=== PATIENT | male | born 1975 | race Caucasian/White ===

== ENCOUNTER 2017-08-12 10:16 | Emergency (ER) | payer OTHER ==
--- NOTE | 2017-08-12 10:23 | EDM.PDOC ---
ED HPI GENERAL MEDICAL PROBLEM - General Chief Complaint: Eye Problems Stated Complaint: STICK TO LEFT EYE Time Seen by Provider: 08/12/17 10:23 Source of Information: Reports: Patient, RN, RN Notes Reviewed History Limitations: Reports: No Limitations - History of Present Illness INITIAL COMMENTS - FREE TEXT/NARRATIVE: Pt c/o getting hit by a chip of fire wood in the left eye last night. Denies any other injury. Pt c/o left eye irritation and mild pain. Denies blurred vision. Pt states his tetanus vaccine is up to date. Onset Date: 08/11/17 Left Eye Pain Score (Numeric/FACES): 8 - Related Data Allergies Allergy/AdvReac Type Severity Reaction Status Date / Time No Known Allergies Allergy Verified 08/12/17 10:28 Home Meds: Home Meds Lisinopril [Zestril] 40 mg PO DAILY 08/12/17 [History] Spironolactone [Aldactone] 25 mg PO DAILY 08/12/17 [History] amLODIPine Besylate [Amlodipine Besylate] 5 mg PO DAILY 08/12/17 [History] Past Medical History Cardiovascular History: Reports: Hypertension Social & Family History - Family History Family Medical History: Noncontributory - Living Situation & Occupation Living situation: Reports: with Family Occupation: Employed ED ROS GENERAL - Review of Systems Review Of Systems: ROS reveals no pertinent complaints other than HPI. ED EXAM GENERAL W FULL EYE - Physical Exam Exam: See Below Exam Limited By: No Limitations General Appearance: Alert, WD/WN, No Apparent Distress Eye Exam: Right Eye: Normal Inspection, Left Eye: Conjunctival Injection, Corneal Abrasion, Bilateral Eye: EOMI, PERRL Eyelids: Left: Lid Everted for Exam, Bilateral: Normal Appearance Conjunctiva & Sclera: Right: Normal Appearance, Left: Injected Cornea Exam: Right: Normal Appearance, Left: Corneal Abrasion, Examined with Flourescein Extraocular Movements: Bilateral: Intact Pupils: Normal Accommodation Pupillary Size: Bilateral: 3 mm Pupillary Reaction: Bilateral: Brisk Anterior Chamber: Left: Normal Appearance Throat/Mouth: Normal Inspection Head: Atraumatic, Normocephalic Neck: Normal Inspection Respiratory/Chest: No Respiratory Distress Neurological: Alert, Oriented, CN II-XII Intact, No Motor/Sensory Deficits Psychiatric: Normal Mood Skin Exam: Warm, Dry, Intact, Normal Color, No Rash Course - Vital Signs Last Recorded V/S: Last Vital Signs Temp 36.6 C 08/12/17 10:22 Pulse 77 08/12/17 10:22 Resp 16 08/12/17 10:22 BP 150/103 H 08/12/17 10:22 Pulse Ox 98 08/12/17 10:22 - Orders/Labs/Meds Meds: Medications Discontinued Medications Generic Name Dose Route Start Last Admin Trade Name Adelina PRN Reason Stop Dose Admin Fluorescein Sodium 1 mg 08/12/17 10:37 08/12/17 10:44 Ful-Beryl EYELF 08/12/17 10:38 1 mg ONETIME ONE Administration Gentamicin Sulfate 1 ml 08/12/17 10:37 08/12/17 10:43 Garamycin 0.3% Ophth Soln EYELF 08/12/17 10:38 1 ml ONETIME ONE Administration Tetracaine HCl 1 ml 08/12/17 10:35 08/12/17 10:44 Tetracaine 0.5% Steri-Unit Kassandra EYELF 08/12/17 10:36 1 ml ONETIME ONE Administration Departure - Departure Time of Disposition: 11:10 Disposition: Home, Self-Care 01 Condition: Good Clinical Impression: Corneal abrasion Qualifiers: Encounter type: initial encounter Laterality: left Qualified Code(s): S05.02XA - Injury of conjunctiva and corneal abrasion without foreign body, left eye, initial encounter - Discharge Information Instructions: Corneal Abrasion Forms: ED Department Discharge Additional Instructions: Gentamicin Ophthalmic Solution 0.3%: One drop into left eye four times a day for 5 days. Wear sun glasses. Follow up in eye clinic next week for recheck.
[2017-08-12] MEDS ORDERED: Tetracaine HCl/PF 0.5% 4 ML Bottle EYELF ONE (10:35)
[2017-08-12] MEDS ORDERED: Fluorescein 1 MG Ophth Strip EYELF ONE (10:37)
[2017-08-12] MEDS ORDERED: Gentamicin 0.3% Ophth Soln 5 ML Bottle EYELF ONE (10:37)
== END 2017-08-12 11:32 | disposition home or self-care (01) ==
LOC: DL.ED 10:16
DX: S05.02XA Injury of conjunctiva and corneal abrasion without foreign body, left eye, initial encounter (principal); I10 Essential (primary) hypertension; Z79.899 Other long term (current) drug therapy; W22.8XXA Striking against or struck by other objects, initial encounter
CPT/HCPCS: 99283; A9270